=== PATIENT | female | born 1940 | race Caucasian/White ===

== ENCOUNTER 2024-11-10 20:31 | Emergency (ER) | payer MEDICARE, MEDICAID ==
[~2024-11-10] VITALS: Wt 83.9 kg
== END 2024-11-10 23:32 | disposition home or self-care (01) ==
LOC: ED 20:31
DX: J96.11 Chronic respiratory failure with hypoxia (principal); M17.12 Unilateral primary osteoarthritis, left knee; I12.9 Hypertensive chronic kidney disease with stage 1 through stage 4 chronic kidney disease, or unspecified chronic kidney disease; E11.22 Type 2 diabetes mellitus with diabetic chronic kidney disease; N18.9 Chronic kidney disease, unspecified

== ENCOUNTER 2025-01-08 22:10 | Inpatient (IN) | payer MEDICARE, MEDICAID ==
[~2025-01-08] VITALS: Ht 157.5 cm; Wt 80.0 kg
[2025-01-08] MEDS ORDERED: FAMOTIDINE20 M1 PO (22:16)
[2025-01-08] MEDS ORDERED: AMLODIPINE BESYL5 MG PO (22:17)
[2025-01-08] MEDS ORDERED: ELIQUIS5 M1 PO (22:17)
[2025-01-08 22:18] VITALS: BP 143/55
[2025-01-08] MEDS ORDERED: FUROSEMIDE20 M1 PO (22:18)
[2025-01-08] MEDS ORDERED: PRAVASTATIN SOD40 MG PO (22:19)
[2025-01-08] MEDS ORDERED: LOSARTAN POTASS50 M1 PO (22:19)
[2025-01-08] MEDS ORDERED: METOPROLOL SUCC50 M1 PO (22:19)
[2025-01-08] MEDS ORDERED: LEVOTHYROXINE112 MCG PO (22:21)
[2025-01-08] MEDS ORDERED: Ipratropium Brom3 ML INH (22:21)
[2025-01-08] MEDS ORDERED: SERTRALINE HYDR25 MG PO (22:21)
[2025-01-08] MEDS ORDERED: ASPIRIN81 M3 PO (22:22)
[2025-01-08] MEDS ORDERED: ANTIFUNGAL POWD85 G1 T (22:23)
[2025-01-08 23:00] VITALS: BP 145/50
[2025-01-08] MEDS ORDERED: Albuterol Sulf/Ipratropium 3 ML VIAL NEB ONE ×2 (23:20→23:49)
[2025-01-08 23:22] LABS: BASO # 0.0 10*3/uL (0.0-0.1); BASO % 0.3 % (0.0-1.0); EOS # 0.3 10*3/uL (0.0-0.4); EOS % 3.3 % (1.0-4.0); MEAN CELL VOLUME 98.6 fl (81.0-99.0); MEAN CORPUSCULAR HGB 28.7 pg (27.0-31.0); MEAN PLATELET VOLUME 10.2 fl (9.6-12.3); MONO # 0.5 10*3/uL (0.1-1.0); MONO % 5.7 % (3.0-9.0); NEUT # 7.1 10*3/uL (2.3-7.9); NEUT % 82.6 % (47.0-73.0); NUCLEATED RED BLOOD CELL 0.0 % (0.0-0.0); NUCLEATED RED BLOOD CELL 0.0 10*3/uL (0.0-0.0); PLATELET COUNT AUTOMATED 237 10*3/uL (130-400); RED CELL DISTRI WIDTH 18.1 % (0-14.5)
[2025-01-08 23:42] LABS: BUN 21 mg/dl (9-23)
[2025-01-08] MEDS ORDERED: BUMETANIDE 1 MG/4 ML VIAL IV ONE (23:45)
[2025-01-08] MEDS ORDERED: AZITHROMYCIN 250 ML IV ONE (23:45)
[2025-01-09] MEDS ORDERED: BUMETANIDE 1 MG/4 ML VIAL ONE (00:13)
[2025-01-09] MEDS ORDERED: AZITHROMYCIN 250 ML IV ONE ×2 (00:13→09:58)
[2025-01-09] MEDS ORDERED: ACETAMINOPHEN 325 MG TAB PO PRN (02:50)
[2025-01-09] MEDS ORDERED: BISACODYL 5 MG TAB PO PRN (02:50)
[2025-01-09] MEDS ORDERED: Acetaminophen/Hydrocodone 5 MG/325 MG TABLET PO PRN (02:50)
[2025-01-09] MEDS ORDERED: Albuterol Sulf/Ipratropium 3 ML VIAL NEB SCH (03:00)
[2025-01-09] MEDS ORDERED: DEXTROSE 50% 25 GM/50 ML VIAL IV PRN ×4 (03:10→05:50)
[2025-01-09 03:40] LABS: ABG BASE EXCESS 0.7 mmol/L (-2.0-3.0); ABG O2 SATURATION 94.3 % (94.0-98.0); ARTERIAL BLOOD GAS PH 7.417 (7.350-7.450); ARTERIAL BLOOD GAS PO2 69.1 mmHg (83.0-108.0)
[2025-01-09 03:59] LABS: MEAN CELL VOLUME 98.5 fl (81.0-99.0); MEAN CORPUSCULAR HGB 28.8 pg (27.0-31.0); MEAN PLATELET VOLUME 10.0 fl (9.6-12.3); NUCLEATED RED BLOOD CELL 0.0 % (0.0-0.0); NUCLEATED RED BLOOD CELL 0.0 10*3/uL (0.0-0.0); PLATELET COUNT AUTOMATED 221 10*3/uL (130-400); RED CELL DISTRI WIDTH 18.0 % (0-14.5)
[2025-01-09 04:11] LABS: MANUAL DIFF REFLEX YES
[2025-01-09 04:19] LABS: PLATELET SUFFICIENCY NORMAL (NORMAL); STOMATOCYTE FEW
[2025-01-09 04:20] VITALS: BP 125/58
[2025-01-09 04:21] LABS: ACT PARTIAL THROMBO TIME 29.0 SECONDS (20.0-32.1)
[2025-01-09 04:26] LABS: BUN 22.0 mg/dl (9-23); FREE T4 1.13 ng/dl (0.89-1.76); LDL CHOLESTEROL 44.0 mg/dL (9-159); SGPT/ALT 24.0 U/L (5-49)
[2025-01-09 05:06] LABS: VITAMIN D, 25-HYDROXY 89.4 ng/mL (30-100)
[2025-01-09] MEDS ORDERED: INSULIN LISPRO 1 UNIT/0.01 ML SQ ONE ×2 (07:02→12:12)
[2025-01-09] MEDS ORDERED: INSULIN LISPRO 1 UNIT/0.01 ML SQ SCH ×4 (07:30)
[2025-01-09] MEDS ORDERED: Albuterol Sulf/Ipratropium 3 ML VIAL NEB ONE (07:31)
[2025-01-09 08:00] VITALS: BP 128/60
[2025-01-09] MEDS ORDERED: ASPIRIN, CHEWABLE 81 MG TAB ONE (09:57)
[2025-01-09] MEDS ORDERED: METOPROLOL SUCCINATE XR 50 MG TAB PO ONE (09:57)
[2025-01-09] MEDS ORDERED: GUAIFENESIN 600 MG TAB ER PO ONE (09:57)
[2025-01-09] MEDS ORDERED: FUROSEMIDE 20 MG/2 ML VIAL ONE (09:58)
[2025-01-09] MEDS ORDERED: APIXABAN 2.5 MG TABLET ONE (09:58)
[2025-01-09] MEDS ORDERED: APIXABAN 5 MG TAB ONE ×2 (09:59→10:02)
[2025-01-09] MEDS ORDERED: METOPROLOL SUCCINATE XR 50 MG TAB PO SCH (10:00)
[2025-01-09] MEDS ORDERED: FUROSEMIDE 20 MG/2 ML VIAL IV SCH (10:00)
[2025-01-09] MEDS ORDERED: AZITHROMYCIN 250 ML IV SCH (10:00)
[2025-01-09] MEDS ORDERED: MICONAZOLE NITRATE 2% 75 GM BOT T SCH (10:00)
[2025-01-09] MEDS ORDERED: GUAIFENESIN 600 MG TAB ER PO SCH (10:00)
[2025-01-09] MEDS ORDERED: APIXABAN 5 MG TAB PO SCH (10:00)
[2025-01-09] MEDS ORDERED: ASPIRIN, CHEWABLE 81 MG TAB PO SCH (10:00)
[2025-01-09 11:43] VITALS: BP 127/61
[2025-01-09] MEDS ORDERED: GUAIFENESIN 200 MG TAB PO PRN (14:10)
[2025-01-09] MEDS ORDERED: GUAIFENESIN/DEXTROMETHORPHAN 10 ML UDC PO PRN (15:00)
[2025-01-09 16:00] VITALS: BP 151/60
[2025-01-09 20:00] VITALS: BP 136/70
[2025-01-09] MEDS ORDERED: Insulin Glargine, Recombinan 1 UNIT/0.01 ML SC SCH (22:00)
[2025-01-09] MEDS ORDERED: ATORVASTATIN CALCIUM 10 MG TAB PO SCH (22:00)
[2025-01-10] VITALS: BP 130/46
[2025-01-10 06:04] LABS: BASO # 0.0 10*3/uL (0.0-0.1); BASO % 0.1 % (0.0-1.0); EOS # 0.0 10*3/uL (0.0-0.4); EOS % 0.0 % (1.0-4.0); MEAN CELL VOLUME 97.2 fl (81.0-99.0); MEAN CORPUSCULAR HGB 29.2 pg (27.0-31.0); MEAN PLATELET VOLUME 10.7 fl (9.6-12.3); MONO # 0.9 10*3/uL (0.1-1.0); MONO % 6.9 % (3.0-9.0); NEUT # 11.0 10*3/uL (2.3-7.9); NEUT % 86.4 % (47.0-73.0); NUCLEATED RED BLOOD CELL 0.0 % (0.0-0.0); NUCLEATED RED BLOOD CELL 0.0 10*3/uL (0.0-0.0); PLATELET COUNT AUTOMATED 251 10*3/uL (130-400); RED CELL DISTRI WIDTH 18.1 % (0-14.5)
[2025-01-10 07:03] LABS: BUN 32.0 mg/dl (9-23)
[2025-01-10 07:51] VITALS: BP 135/67
[2025-01-10] MEDS ORDERED: APIXABAN 5 MG TAB PO SCH (10:00)
[2025-01-10] MEDS ORDERED: AZITHROMYCIN 500 MG in SODIUM CHLORIDE 0.9% 250 ML IV SCH (11:00)
[2025-01-10 12:00] VITALS: BP 138/79
[2025-01-10 16:00] VITALS: BP 132/42
[2025-01-10 20:00] VITALS: BP 133/54
[2025-01-10] MEDS ORDERED: Insulin Glargine, Recombinan 1 UNIT/0.01 ML SC SCH (22:00)
[2025-01-11] VITALS: BP 146/66
[2025-01-11 08:00] VITALS: BP 143/58
[2025-01-11] MEDS ORDERED: FUROSEMIDE 20 MG/2 ML VIAL IV ONE (10:30)
[2025-01-11] MEDS ORDERED: GUAIFENESIN 600 MG TAB ER PO SCH (11:02)
[2025-01-11 12:00] VITALS: BP 117/72
[2025-01-11 16:00] VITALS: BP 99/83
[2025-01-11 17:49] VITALS: BP 141/83
[2025-01-11 20:00] VITALS: BP 132/64
[2025-01-12] VITALS: BP 155/58
[2025-01-12] MEDS ORDERED: FOAM BANDAGE HEEL T ONE (03:56)
[2025-01-12] MEDS ORDERED: FOAM BANDAGE 1 EACH BANDAGE T ONE (03:56)
[2025-01-12] MEDS ORDERED: HEEL PROTECTOR DEVICE ONE (03:57)
[2025-01-12 06:04] LABS: BUN 32 mg/dl (9-23)
[2025-01-12 08:00] VITALS: BP 153/72
[2025-01-12] MEDS ORDERED: FOAM BANDAGE 5X5 T ONE (08:22)
[2025-01-12] MEDS ORDERED: FUROSEMIDE 20 MG/2 ML VIAL IV ONE (10:40)
[2025-01-12 12:00] VITALS: BP 141/64
[2025-01-12 15:59] VITALS: BP 119/51
[2025-01-12 20:00] VITALS: BP 122/69
[2025-01-13] VITALS: BP 144/56
[2025-01-13 05:31] LABS: BUN 33 mg/dl (9-23)
[2025-01-13 06:11] LABS: BASO # 0.0 10*3/uL (0.0-0.1); BASO % 0.1 % (0.0-1.0); EOS # 0.2 10*3/uL (0.0-0.4); EOS % 1.8 % (1.0-4.0); MEAN CELL VOLUME 98.5 fl (81.0-99.0); MEAN CORPUSCULAR HGB 29.0 pg (27.0-31.0); MEAN PLATELET VOLUME 10.3 fl (9.6-12.3); MONO # 1.0 10*3/uL (0.1-1.0); MONO % 10.3 % (3.0-9.0); NEUT # 7.5 10*3/uL (2.3-7.9); NEUT % 75.8 % (47.0-73.0); NUCLEATED RED BLOOD CELL 0.0 % (0.0-0.0); NUCLEATED RED BLOOD CELL 0.0 10*3/uL (0.0-0.0); PLATELET COUNT AUTOMATED 227 10*3/uL (130-400); RED CELL DISTRI WIDTH 18.1 % (0-14.5)
[2025-01-13 08:00] VITALS: BP 130/68
[2025-01-13] MEDS ORDERED: FUROSEMIDE 20 MG/2 ML VIAL IV ONE (11:25)
[2025-01-13 12:00] VITALS: BP 141/48
[2025-01-13 14:56] LABS: ABG BASE EXCESS 2.9 mmol/L (-2.0-3.0); ABG O2 SATURATION 90.9 % (94.0-98.0); ARTERIAL BLOOD GAS PH 7.394 (7.350-7.450); ARTERIAL BLOOD GAS PO2 56.4 mmHg (83.0-108.0)
[2025-01-13 16:00] VITALS: BP 133/62
[2025-01-13] MEDS ORDERED: FUROSEMIDE 40 MG/4 ML VIAL IV SCH (18:00)
[2025-01-13 19:46] VITALS: BP 126/65
[2025-01-13 22:15] LABS: BILIRUBIN Negative (Negative); BLOOD Negative (Negative); CLARITY Clear (Clear); COLOR Yellow (Yellow); KETONE Negative (Negative); LEUKO ESTERASE Negative (Negative); NITRITE Negative (Negative); PH 5.5 (4.5-8.0); SPECIFIC GRAVITY 1.010 (1.001-1.030); UROBILINOGEN 0.2 E.U./dl (0.0-1.0)
[2025-01-14] VITALS: BP 150/59
[2025-01-14 08:00] VITALS: BP 132/56
[2025-01-14 12:00] VITALS: BP 129/57
[2025-01-14 16:00] VITALS: BP 139/66
[2025-01-14 20:00] VITALS: BP 135/70
[2025-01-15] VITALS: BP 140/60
[2025-01-15 05:17] LABS: BUN 35 mg/dl (9-23); SGPT/ALT 39 U/L (5-49)
[2025-01-15 06:19] LABS: BASO # 0.0 10*3/uL (0.0-0.1); BASO % 0.1 % (0.0-1.0); EOS # 0.1 10*3/uL (0.0-0.4); EOS % 0.6 % (1.0-4.0); MEAN CELL VOLUME 97.7 fl (81.0-99.0); MEAN CORPUSCULAR HGB 29.3 pg (27.0-31.0); MEAN PLATELET VOLUME 10.2 fl (9.6-12.3); MONO # 1.0 10*3/uL (0.1-1.0); MONO % 8.2 % (3.0-9.0); NEUT # 10.3 10*3/uL (2.3-7.9); NEUT % 83.2 % (47.0-73.0); NUCLEATED RED BLOOD CELL 0.0 % (0.0-0.0); NUCLEATED RED BLOOD CELL 0.0 10*3/uL (0.0-0.0); PLATELET COUNT AUTOMATED 247 10*3/uL (130-400); RED CELL DISTRI WIDTH 18.4 % (0-14.5)
[2025-01-15 08:00] VITALS: BP 154/70
[2025-01-15 12:00] VITALS: BP 120/59
[2025-01-15 16:00] VITALS: BP 127/51
[2025-01-15 20:00] VITALS: BP 114/91
[2025-01-16] VITALS: BP 137/55
[2025-01-16 06:16] LABS: BUN 37 mg/dl (9-23); SGPT/ALT 32 U/L (5-49)
[2025-01-16 06:34] LABS: BASO # 0.0 10*3/uL (0.0-0.1); BASO % 0.1 % (0.0-1.0); EOS # 0.2 10*3/uL (0.0-0.4); EOS % 2.0 % (1.0-4.0); MEAN CELL VOLUME 99.1 fl (81.0-99.0); MEAN CORPUSCULAR HGB 29.0 pg (27.0-31.0); MEAN PLATELET VOLUME 10.9 fl (9.6-12.3); MONO # 1.0 10*3/uL (0.1-1.0); MONO % 8.4 % (3.0-9.0); NEUT # 8.9 10*3/uL (2.3-7.9); NEUT % 76.4 % (47.0-73.0); NUCLEATED RED BLOOD CELL 0.0 % (0.0-0.0); NUCLEATED RED BLOOD CELL 0.0 10*3/uL (0.0-0.0); PLATELET COUNT AUTOMATED 265 10*3/uL (130-400); RED CELL DISTRI WIDTH 18.3 % (0-14.5)
[2025-01-16 07:55] VITALS: BP 127/63
[2025-01-16 12:45] VITALS: BP 119/50
[2025-01-16] MEDS ORDERED: DOXYCYCLINE HY100 M3 PO (14:10)
[2025-01-16] MEDS ORDERED: POTASSIUM CHLO10 ME4 PO (14:10)
[2025-01-16] MEDS ORDERED: ELIQUIS5 M1 PO (14:10)
[2025-01-16] MEDS ORDERED: LASIX40 MG PO (14:10)
[2025-01-16] MEDS ORDERED: PREDNISONE10 MG PO (14:11)
[2025-01-16 20:00] VITALS: BP 146/61; BP 151/98
[2025-01-16] MEDS ORDERED: Insulin Glargine, Recombinan 1 UNIT/0.01 ML SC SCH (22:00)
== END 2025-01-16 20:08 | DRG 871 ==
LOC: ED 22:10 → EDHOLD 01-09 02:15 → 4E 01-09 02:15 → EDHOLD 01-09 03:01 → 4E 01-09 04:08
PROVIDERS: Family Medicine; Internal Medicine; Internal Medicine Critical Care Medicine; Student in an Organized Health Care Education/Training Program; ADMIT Internal Medicine; ATTEND Internal Medicine
DX: A41.9 Sepsis, unspecified organism (principal); I50.43 Acute on chronic combined systolic (congestive) and diastolic (congestive) heart failure; J15.69 Pneumonia due to other Gram-negative bacteria; J96.21 Acute and chronic respiratory failure with hypoxia; J44.1 Chronic obstructive pulmonary disease with (acute) exacerbation; E46 Unspecified protein-calorie malnutrition; N17.9 Acute kidney failure, unspecified; J91.8 Pleural effusion in other conditions classified elsewhere; I13.0 Hypertensive heart and chronic kidney disease with heart failure and stage 1 through stage 4 chronic kidney disease, or unspecified chronic kidney disease; J44.0 Chronic obstructive pulmonary disease with (acute) lower respiratory infection; E87.3 Alkalosis; N18.32 Chronic kidney disease, stage 3b; I48.91 Unspecified atrial fibrillation; Z20.822 Contact with and (suspected) exposure to COVID-19; Z66 Do not resuscitate; D64.9 Anemia, unspecified; E11.22 Type 2 diabetes mellitus with diabetic chronic kidney disease; F32.A Depression, unspecified; K21.9 Gastro-esophageal reflux disease without esophagitis; E78.5 Hyperlipidemia, unspecified; E03.9 Hypothyroidism, unspecified; M81.0 Age-related osteoporosis without current pathological fracture; R65.20 Severe sepsis without septic shock; E11.65 Type 2 diabetes mellitus with hyperglycemia; I70.0 Atherosclerosis of aorta; I35.0 Nonrheumatic aortic (valve) stenosis; I27.20 Pulmonary hypertension, unspecified; F41.1 Generalized anxiety disorder; I25.10 Atherosclerotic heart disease of native coronary artery without angina pectoris; E66.9 Obesity, unspecified; M17.12 Unilateral primary osteoarthritis, left knee; Z99.81 Dependence on supplemental oxygen; Z79.899 Other long term (current) drug therapy; Z95.0 Presence of cardiac pacemaker; Z79.4 Long term (current) use of insulin; Z68.32 Body mass index [BMI] 32.0-32.9, adult; Z87.891 Personal history of nicotine dependence; Z83.3 Family history of diabetes mellitus; Z79.01 Long term (current) use of anticoagulants; Z79.2 Long term (current) use of antibiotics